=== PATIENT | female | born 1985 | race Hispanic/Latino ===

== ENCOUNTER 2017-08-28 11:42 | Emergency (ER) | payer MEDICAID ==
[2017-08-28 12:10] VITALS: BP 115/49
[2017-08-28] MEDS ORDERED: ZOFRAN ODT PO ONE (13:13)
[2017-08-28] MEDS ORDERED: NORCO 5/325 PO ONE (13:13)
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
[2017-08-28] MEDS ORDERED: TORADOL IM ONE (15:02)
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
== END 2017-08-28 15:47 | disposition home or self-care (01) ==
LOC: ED 11:42
DX: S06.0X0A Concussion without loss of consciousness, initial encounter (principal); F17.200 Nicotine dependence, unspecified, uncomplicated; V89.2XXA Person injured in unspecified motor-vehicle accident, traffic, initial encounter; Y93.89 Activity, other specified; Y92.89 Other specified places as the place of occurrence of the external cause; Y99.8 Other external cause status
CPT/HCPCS: 70450; 96372; 99283; J1885; Q0162